=== PATIENT | female | born 1955 | race Caucasian/White ===

== ENCOUNTER → 2023-01-05 | Outpatient (CLI) | payer MEDICARE | END | disposition home or self-care (01) | LOC: CT 10:40 | PROVIDERS: ATTEND Internal Medicine Critical Care Medicine | DX: I25.10 Atherosclerotic heart disease of native coronary artery without angina pectoris (principal); R06.02 Shortness of breath; I51.7 Cardiomegaly; N20.0 Calculus of kidney | CPT/HCPCS: 71250 ==